=== PATIENT | female | born 1945 | race Caucasian/White ===

== ENCOUNTER → 2018-01-12 | Outpatient (CLI) | payer MEDICARE ==
[~2018-01-12] MED LIST: IOPAMIDOL 370 MG/ML 200 ML INFUS..BTL INJ ONE; SODIUM CHLORIDE 0.9% 100 ML ONE; SODIUM CHLORIDE 0.9% 500ML 500 ML ONE
--- NOTE | 2018-01-12 12:28 | Diagnostic Imaging Report ---
EXAM: CTA Abdomen and Pelvis WITH CONTRAST. DATE: 01/12/2018 11:04 AM INDICATION: COMPARISON: 12/11/2013 abdominal ultrasound TECHNIQUE: CT angiogram of the abdomen and pelvis was obtained after the administration of IV contrast. Prospective gating was performed. Images reviewed in the axial, coronal, and sagittal planes. 3D reconstructions performed on off-line workstation. IV Contrast: 100 mL Isovue-370. Total DLP: 274 mGy*cm Est. Eff. Dose DLP x 0.015 x size factor mSv (CTDIvol has been reviewed and is below limits set by [facility]). FINDINGS: VASCULAR: Abdominal Aorta Mesenteric Segment: 21 mm. Abdominal Aorta Just Below Renal Arteries: 20 mm. Mid Infrarenal Abdominal Aorta: 53 mm. Abdominal Aortal at Bifurcation: 14 mm. Mesenteric Arteries: Moderate vascular calcifications in patent celiac trunk and SMA with moderate to severe vascular calcifications proximal bilateral single renal arteries with probable significant proximal narrowing. Aneurysm: Fusiform aneurysm of the distal infrarenal aorta beginning approximately 57 mm below the renal arteries and extending over a length of a proximally 60 mm to just above the bifurcation. No surrounding inflammatory changes. RCIA: 10 mm. LCIA: 8 mm. Internal Iliac Arteries: Significant vascular calcifications and scattered at least moderate areas of narrowing present in the common, external, and internal iliac arteries. Abdomen: Lung Bases: No acute findings. Solid Organs: Probable transient hepatic attenuation defects. Otherwise, liver, adrenals, kidneys, spleen, and pancreas unremarkable. Upper GI Tract: Gastric decompression limits adequate evaluation. No small bowel obstructive changes. Lymph Nodes: No suspicious adenopathy. Other: None. Pelvis: Bladder: Mild wall thickening likely due to decompression. Other: Uterus absent. Colon: Sigmoid diverticulosis without evidence of diverticulitis. Decompressed colon otherwise limits evaluation. Bones: Degenerative changes spine, SI joints, and hips. IMPRESSION: 1. 53 mm infrarenal abdominal aortic aneurysm as detailed above. This has increased in size from 45 mm 12/11/2013 ultrasound. 2. Advanced mesenteric and aortoiliac atherosclerotic changes with probable at least moderate narrowing of the proximal renal arteries, external iliac arteries, and internal iliac arteries as above. 3. Diverticulosis. Signed by: Dr. Yosi De La O MD on 01/12/2018 12:25 PM
== END ==
LOC: CT 10:47
PROVIDERS: ATTEND Internal Medicine Interventional Cardiology
DX: I71.4 Abdominal aortic aneurysm, without rupture (principal)
CPT/HCPCS: 74174; J7040; J7050; Q9967